=== PATIENT | male | born 1985 | race Caucasian/White ===

== ENCOUNTER 2022-06-21 19:05 | Inpatient (IN) | payer BC ==
[~2022-06-21 19:05] MED LIST: Iopamidol-370 76% 500 ML 1 ML ONE
[2022-06-21] MEDS ORDERED: Morphine 4 MG/ML VIAL ONE ×2 (19:41→21:43)
[2022-06-21] MEDS ORDERED: Pantoprazole 40 MG VIAL ONE (19:41)
[2022-06-21 20:14] LABS: #Eosinphils 0.1 thou/uL (0.0-0.7); #Lymphocytes 1.9 thou/uL (1.20-3.40); #Monocytes 1.1 thou/uL (0.11-0.59); #Neutrophils 13.4 thou/uL (1.40-6.50); %Basophils 0.3 % (0.0-1.0); %Eosinophils 0.5 % (0.0-10.0); %Lymphocytes 11.5 % (21.0-51.0); %Monocytes 6.4 % (0.0-10.0); %Neutrophils 81.3 % (42.0-75.0); Hemoglobin 15.5 g/dL (14.0-18.0); Mean Corpuscular HGB CONC 32.6 g/dL (32.0-36.0); Mean Corpuscular Hemoglobin 27.9 pg (27.0-31.0); Mean Corpuscular Volume 85.6 fL (78.0-98.0); Mean Platelet Volume 9.5 fL (7.4-10.4); Platelet Count 173 thou/uL (130-400); RBC Distribution Width 12.9 % (11.5-14.5); Red Blood Cell (RBC) Count 5.57 mill/uL (4.70-6.10); White Blood Cell (WBC) Count 16.4 thou/uL (4.8-10.8)
[2022-06-21 20:42] LABS: ALT (SGPT) 112 U/L (8-55); AST (SGOT) 151 U/L (5-34); Albumin 4.5 g/dL (3.5-5.0); Alkaline Phosphatase 170 U/L (40-110); Anion Gap 17 mmol/L (10-20); BUN (Urea Nitrogen) 16 mg/dL (8.9-20.6); Bilirubin, Total 0.6 mg/dL (0.2-1.2); CK (CPK) 255 U/L (30-200); Calc. Creatinine Clearance 0 mL/min (70-130); Calcium 9.4 mg/dL (7.8-10.44); Carbon Dioxide 25 mmol/L (22-29); Chloride 101 mmol/L (98-107); Estimated GFR 95; Globulin 2.9 g/dL (2.4-3.5); Glucose 113 mg/dL (70-105); Potassium 4.3 mmol/L (3.5-5.1); Protein, Total 7.4 g/dL (6.0-8.3); Sodium 139 mmol/L (136-145)
[2022-06-21 20:47] LABS: Lipase 4078 U/L (8-78)
[2022-06-21 21:33] LABS: Bilirubin Negative (Negative); Blood, Urine Negative (Negative); Clarity Clear (Clear); Glucose, Urine (Dipstick) Normal (Negative); Ketone, Urine Negative (Negative); Leukocyte Negative Leu/uL (Negative); Nitrite Negative (Negative); Protein, Urine (Dipstick) Negative (Neg-Trace); Urobilinogen Normal mg/dL (Less than 2); pH, Urine 5.5 (5.0-9.0)
[2022-06-21] MEDS ORDERED: Ondansetron ODT 4 MG TAB SL PRN (23:45)
[2022-06-21] MEDS ORDERED: Ondansetron PF 4 MG/2 ML Vial IVP PRN (23:45)
[2022-06-21] MEDS ORDERED: Acetaminophen 650 MG Suppository PR PRN (23:51)
[2022-06-21] MEDS ORDERED: Acetaminophen 325 MG TAB PO PRN (23:51)
[2022-06-21] MEDS ORDERED: Piperacillin/Tazobactam 3.375 GM in Sodium Chloride 0.9% 100 ML IVPB SCH (23:59)
[2022-06-22] MEDS: Sodium Chloride 0.9% 1,000 ML IV SCH ×3 (00:30→20:15)
[2022-06-22 02:21] VITALS: BMI 37.6
[2022-06-22] MEDS: Piperacillin/Tazobactam 3.375 GM in Sodium Chloride 0.9% 100 ML IVPB SCH ×3 (04:56→21:24)
[2022-06-22 06:32] LABS: #Eosinphils 0.2 thou/uL (0.0-0.7); #Lymphocytes 2.5 thou/uL (1.20-3.40); #Monocytes 0.7 thou/uL (0.11-0.59); %Basophils 0.4 % (0.0-1.0); %Eosinophils 1.7 % (0.0-10.0); %Lymphocytes 23.8 % (21.0-51.0); %Monocytes 6.4 % (0.0-10.0); %Neutrophils 67.6 % (42.0-75.0); Hemoglobin 14.4 g/dL (14.0-18.0); Mean Corpuscular Hemoglobin 27.7 pg (27.0-31.0); Mean Corpuscular Volume 86.5 fL (78.0-98.0); Mean Platelet Volume 9.5 fL (7.4-10.4); Platelet Count 155 thou/uL (130-400); RBC Distribution Width 12.9 % (11.5-14.5); White Blood Cell (WBC) Count 10.3 thou/uL (4.8-10.8)
[2022-06-22 07:03] LABS: Anion Gap 12 mmol/L (10-20); BUN (Urea Nitrogen) 12 mg/dL (8.9-20.6); Calc. Creatinine Clearance 195 mL/min (70-130); Calcium 8.5 mg/dL (7.8-10.44); Carbon Dioxide 26 mmol/L (22-29); Chloride 107 mmol/L (98-107); Estimated GFR 112; Glucose 99 mg/dL (70-105); Potassium 4.2 mmol/L (3.5-5.1); Sodium 141 mmol/L (136-145)
[2022-06-22 08:29] LABS: ALT (SGPT) 88 U/L (8-55); AST (SGOT) 69 U/L (5-34); Albumin 3.7 g/dL (3.5-5.0); Alkaline Phosphatase 147 U/L (40-110); Bilirubin, Direct 0.3 mg/dL (0.1-0.3); Bilirubin, Total 0.8 mg/dL (0.2-1.2)
[2022-06-22] MEDS ORDERED: Morphine 4 MG/ML VIAL SLOW IVP PRN (11:02)
[2022-06-22] MEDS ORDERED: Morphine 2 MG/ML VIAL SLOW IVP PRN (11:02)
[2022-06-23] MEDS: Sodium Chloride 0.9% 1,000 ML IV SCH ×3 (01:27→18:08)
[2022-06-23] MEDS: Piperacillin/Tazobactam 3.375 GM in Sodium Chloride 0.9% 100 ML IVPB SCH ×3 (05:14→21:13)
[2022-06-23 07:11] LABS: #Eosinphils 0.2 thou/uL (0.0-0.7); #Lymphocytes 2.2 thou/uL (1.20-3.40); #Monocytes 0.5 thou/uL (0.11-0.59); #Neutrophils 6.3 thou/uL (1.40-6.50); %Basophils 0.2 % (0.0-1.0); %Eosinophils 2.3 % (0.0-10.0); %Monocytes 5.5 % (0.0-10.0); %Neutrophils 67.9 % (42.0-75.0); Hemoglobin 14.3 g/dL (14.0-18.0); Mean Corpuscular Hemoglobin 28.5 pg (27.0-31.0); Mean Corpuscular Volume 86.2 fL (78.0-98.0); Mean Platelet Volume 9.4 fL (7.4-10.4); Platelet Count 155 thou/uL (130-400); RBC Distribution Width 12.8 % (11.5-14.5); Red Blood Cell (RBC) Count 5.03 mill/uL (4.70-6.10); White Blood Cell (WBC) Count 9.3 thou/uL (4.8-10.8)
[2022-06-23 07:34] LABS: ALT (SGPT) 59 U/L (8-55); AST (SGOT) 42 U/L (5-34); Albumin 3.9 g/dL (3.5-5.0); Alkaline Phosphatase 138 U/L (40-110); Anion Gap 14 mmol/L (10-20); BUN (Urea Nitrogen) 11 mg/dL (8.9-20.6); Bilirubin, Total 0.8 mg/dL (0.2-1.2); Calc. Creatinine Clearance 173 mL/min (70-130); Calcium 8.8 mg/dL (7.8-10.44); Carbon Dioxide 25 mmol/L (22-29); Chloride 103 mmol/L (98-107); Estimated GFR 99; Globulin 2.5 g/dL (2.4-3.5); Glucose 91 mg/dL (70-105); Protein, Total 6.4 g/dL (6.0-8.3); Sodium 138 mmol/L (136-145)
[2022-06-23] MEDS ORDERED: Piperacillin/Tazobactam 3.375 GM VIAL ONE (11:23)
[2022-06-23] MEDS ORDERED: Sodium Chloride 0.9% 100 ML ONE (11:24)
[2022-06-23] MEDS ORDERED: Bupivacaine/Epinephrine 0.25% 30 ML VIAL ONE (12:30)
[2022-06-23] MEDS ORDERED: Ketorolac Tromethamine 30 MG/ML VIAL ONE (12:45)
[2022-06-23] MEDS ORDERED: Rocuronium Bromide 10 MG/ML (10ML VIAL) ONE (12:45)
[2022-06-23] MEDS ORDERED: PROPOFOL 200 MG/20 ML VIAL ONE (12:45)
[2022-06-23] MEDS ORDERED: Lidocaine 1% PF 5 ML VIAL ONE (12:45)
[2022-06-23] MEDS ORDERED: Dexamethasone 20 MG/5 ML VIAL ONE (12:45)
[2022-06-23] MEDS ORDERED: Ondansetron PF 4 MG/2 ML Vial ONE (12:45)
[2022-06-23] MEDS ORDERED: Midazolam HCl 2 mg/2 ml Vial ONE (12:47)
[2022-06-23] MEDS ORDERED: fentaNYL Citrate/PF 100 MCG/2 ML SYRINGE ONE (12:48)
[2022-06-23] MEDS ORDERED: Promethazine HCl 25 MG/ML VIAL IM PRN ×3 (13:43→16:15)
[2022-06-23] MEDS ORDERED: Ondansetron HCl/PF 4 MG/2 ML Vial IVP PRN ×2 (13:43→16:15)
[2022-06-23] MEDS ORDERED: Morphine Sulfate 2 MG/ML SYRINGE SLOW IVP PRN (13:43)
[2022-06-23] MEDS ORDERED: Meperidine HCl/PF 25 MG/ML VIAL SLOW IVP PRN (13:43)
[2022-06-23] MEDS ORDERED: PACU-Morphine 4MG/ML VIAL SLOW IVP PRN (13:43)
[2022-06-23] MEDS ORDERED: HYDROmorphone 2 MG/ML VIAL SLOW IVP PRN (13:43)
[2022-06-23] MEDS ORDERED: Promethazine HCl 25 MG/ML VIAL IVPB PRN ×2 (13:43→16:15)
[2022-06-23] MEDS ORDERED: Iopamidol 30 ML ONE (14:00)
[2022-06-23] MEDS ORDERED: SUGAMMADEX SODIUM 200 MG/2 ML VIAL ONE (15:50)
[2022-06-23] MEDS ORDERED: HYDROmorphone 2 MG/ML VIAL ONE (15:55)
[2022-06-23] MEDS ORDERED: diphenhydrAMINE 25 MG CAP PO PRN (16:10)
[2022-06-23] MEDS ORDERED: diphenhydrAMINE 50 MG/ML VIAL IVP PRN (16:10)
[2022-06-23] MEDS ORDERED: Ondansetron PF 4 MG/2 ML Vial IVP PRN (16:10)
[2022-06-23] MEDS ORDERED: HYDROmorphone 10 mg/100 ml CADD IVPB PRN (16:10)
[2022-06-23] MEDS ORDERED: Naloxone HCl 0.4 mg/ml Vial IV PRN (16:10)
[2022-06-23] MEDS ORDERED: diphenhydrAMINE 50 MG/ML VIAL IM PRN (16:10)
[2022-06-23] MEDS ORDERED: Acetaminophen 325 MG TAB PO PRN (16:15)
[2022-06-23] MEDS ORDERED: Communication Order-Pharmacy FS SCH (16:15)
[2022-06-23] MEDS ORDERED: Fentanyl 100 MCG/2 ML VIAL ONE (16:54)
[2022-06-23] MEDS: Ketorolac Tromethamine 30 MG/ML VIAL IVP SCH (17:50)
[2022-06-24] MEDS: Ketorolac Tromethamine 30 MG/ML VIAL IVP SCH ×5 (01:03→22:43)
[2022-06-24] MEDS: Sodium Chloride 0.9% 1,000 ML IV SCH ×3 (04:29→17:34)
[2022-06-24] MEDS: Piperacillin/Tazobactam 3.375 GM in Sodium Chloride 0.9% 100 ML IVPB SCH ×3 (04:50→19:58)
[2022-06-24 06:48] LABS: Band 9 % (5-11); Lymphocytes 11 % (21-51); MDiff Complete? YES; Mean Corpuscular HGB CONC 32.5 g/dL (32.0-36.0); Mean Corpuscular Hemoglobin 28.2 pg (27.0-31.0); Mean Corpuscular Volume 86.8 fL (78.0-98.0); Mean Platelet Volume 9.2 fL (7.4-10.4); Monocytes 3 % (0-10); Neutrophil 77 % (42-75); Platelet Count 188 thou/uL (130-400); Platelet Morphology Comment Appears Adequate; RBC Distribution Width 12.9 % (11.5-14.5); RBC Morphology Normal; Red Blood Cell (RBC) Count 5.32 mill/uL (4.70-6.10); White Blood Cell (WBC) Count 19.6 thou/uL (4.8-10.8)
[2022-06-24] MEDS ORDERED: Famotidine/PF 20 mg/2ml Vial ONE (07:35)
[2022-06-24] MEDS ORDERED: SUGAMMADEX SODIUM 200 MG/2 ML VIAL ONE (07:35)
[2022-06-24] MEDS ORDERED: fentaNYL Citrate/PF 100 MCG/2 ML SYRINGE ONE (07:35)
[2022-06-24] MEDS ORDERED: Iopamidol 30 ML ONE (07:37)
[2022-06-24] MEDS ORDERED: B & O ONE (07:37)
[2022-06-24 07:46] LABS: Albumin 3.9 g/dL (3.5-5.0)
[2022-06-24 07:47] LABS: Chloride 104 mmol/L (98-107); Potassium 5.1 mmol/L (3.5-5.1); Sodium 138 mmol/L (136-145)
[2022-06-24 07:48] LABS: Calcium 8.8 mg/dL (7.8-10.44); Glucose 108 mg/dL (70-105)
[2022-06-24 07:49] LABS: Protein, Total 6.8 g/dL (6.0-8.3)
[2022-06-24 07:50] LABS: Anion Gap 15 mmol/L (10-20); Bilirubin, Total 0.7 mg/dL (0.2-1.2); Carbon Dioxide 24 mmol/L (22-29)
[2022-06-24 07:51] LABS: Alkaline Phosphatase 145 U/L (40-110)
[2022-06-24 07:52] LABS: Calc. Creatinine Clearance 177 mL/min (70-130); Estimated GFR 101
[2022-06-24 07:53] LABS: AST (SGOT) 49 U/L (5-34); BUN (Urea Nitrogen) 12 mg/dL (8.9-20.6); Bilirubin, Direct 0.2 mg/dL (0.1-0.3)
[2022-06-24 07:54] LABS: ALT (SGPT) 62 U/L (8-55)
[2022-06-24] MEDS ORDERED: Lidocaine 1% PF 5 ML VIAL ONE (08:19)
[2022-06-24] MEDS ORDERED: PROPOFOL 200 MG/20 ML VIAL ONE (08:19)
[2022-06-24] MEDS ORDERED: Rocuronium Bromide 10 MG/ML (10ML VIAL) ONE (08:19)
[2022-06-24] MEDS ORDERED: Phenylephrine 10 MG/ML VIAL ONE (08:19)
[2022-06-24] MEDS ORDERED: ePHEDrine 50 MG/ML VIAL ONE (08:19)
[2022-06-24] MEDS ORDERED: Metoclopramide HCl 10 MG/2 ML VIAL ONE (08:19)
[2022-06-24] MEDS ORDERED: Dexamethasone 20 MG/5 ML VIAL ONE (08:19)
[2022-06-24] MEDS ORDERED: Ondansetron PF 4 MG/2 ML Vial ONE (08:19)
[2022-06-24] MEDS ORDERED: Indomethacin 50 MG SUPP ONE (08:50)
[2022-06-24] MEDS ORDERED: Promethazine HCl 25 MG/ML VIAL IVPB PRN (10:19)
[2022-06-24] MEDS ORDERED: Ondansetron HCl/PF 4 MG/2 ML Vial IVP PRN (10:19)
[2022-06-24] MEDS ORDERED: Promethazine HCl 25 MG/ML VIAL IM PRN (10:19)
[2022-06-24] MEDS ORDERED: Senokot S 8.6-50 MG TAB PO PRN (18:49)
[2022-06-25] MEDS: Sodium Chloride 0.9% 1,000 ML IV SCH (05:31)
[2022-06-25] MEDS: Piperacillin/Tazobactam 3.375 GM in Sodium Chloride 0.9% 100 ML IVPB SCH (05:31)
[2022-06-25] MEDS: Ketorolac Tromethamine 30 MG/ML VIAL IVP SCH (05:31)
[2022-06-25 05:44] LABS: #Monocytes 1.3 thou/uL (0.11-0.59); #Neutrophils 14.9 thou/uL (1.40-6.50); %Basophils 0.1 % (0.0-1.0); %Eosinophils 0.1 % (0.0-10.0); %Lymphocytes 15.5 % (21.0-51.0); %Neutrophils 77.4 % (42.0-75.0); Hemoglobin 14.1 g/dL (14.0-18.0); Mean Corpuscular HGB CONC 32.5 g/dL (32.0-36.0); Mean Corpuscular Hemoglobin 28.3 pg (27.0-31.0); Mean Corpuscular Volume 87.2 fL (78.0-98.0); Mean Platelet Volume 9.2 fL (7.4-10.4); Platelet Count 196 thou/uL (130-400); RBC Distribution Width 13.1 % (11.5-14.5); Red Blood Cell (RBC) Count 4.98 mill/uL (4.70-6.10); White Blood Cell (WBC) Count 19.2 thou/uL (4.8-10.8)
[2022-06-25 06:05] LABS: ALT (SGPT) 48 U/L (8-55); AST (SGOT) 31 U/L (5-34); Albumin 4.1 g/dL (3.5-5.0); Alkaline Phosphatase 121 U/L (40-110); Anion Gap 15 mmol/L (10-20); BUN (Urea Nitrogen) 17 mg/dL (8.9-20.6); Bilirubin, Total 0.9 mg/dL (0.2-1.2); Calc. Creatinine Clearance 167 mL/min (70-130); Calcium 8.8 mg/dL (7.8-10.44); Carbon Dioxide 24 mmol/L (22-29); Chloride 104 mmol/L (98-107); Estimated GFR 94; Globulin 2.6 g/dL (2.4-3.5); Glucose 80 mg/dL (70-105); Potassium 4.4 mmol/L (3.5-5.1); Protein, Total 6.7 g/dL (6.0-8.3); Sodium 139 mmol/L (136-145)
[2022-06-25] MEDS ORDERED: traMADol HCl 50 MG TAB PO PRN ×2 (08:35→08:36)
[2022-06-25] MEDS ORDERED: Amoxicillin/Potassium Clav 875 MG TAB PO SCH (09:00)
[2022-06-25 11:38] VITALS: BP 129/73; TEMP 98
[2022-06-25] MEDS ORDERED: Acetaminophen 500 MG TAB PO SCH (12:00)
[2022-06-25] MEDS ORDERED: Ibuprofen 200 MG TAB PO SCH (14:00)
== END 2022-06-25 12:15 | disposition home or self-care (01) | DRG 414 ==
LOC: ERS 19:05 → T4-B 22:10
PROVIDERS: ADMIT Student in an Organized Health Care Education/Training Program; ATTEND Family Medicine
PROC: 0FT40ZZ Resection of Gallbladder, Open Approach (ICD-10-PCS; principal; 2022-06-23)
PROC: 0FJ44ZZ Inspection of Gallbladder, Percutaneous Endoscopic Approach (ICD-10-PCS; 2022-06-23)
PROC: 0FJB8ZZ Inspection of Hepatobiliary Duct, Via Natural or Artificial Opening Endoscopic (ICD-10-PCS; 2022-06-24)
DX: K81.0 Acute cholecystitis (principal); K85.90 Acute pancreatitis without necrosis or infection, unspecified; D80.3 Selective deficiency of immunoglobulin G [IgG] subclasses; N13.30 Unspecified hydronephrosis; Z20.822 Contact with and (suspected) exposure to COVID-19; K81.1 Chronic cholecystitis; K76.0 Fatty (change of) liver, not elsewhere classified; F17.220 Nicotine dependence, chewing tobacco, uncomplicated; E66.9 Obesity, unspecified; R59.1 Generalized enlarged lymph nodes; Z91.013 Allergy to seafood; Z79.899 Other long term (current) drug therapy; Z68.37 Body mass index [BMI] 37.0-37.9, adult
CPT/HCPCS: 36415; 74018; 74177; 74181; 76000; 76705; 78227; 80048; 80053; 80076; 81003; 82550; 83690; 85025; 88304; 93005; 96361; 96374; 96375; A9537; C1713; C9113; J1100; J1170; J1885; J2250; J2270; J2370; J2405; J2543; J2704; J2765; J3010; J3490; J7050; Q9967; S0028; U0003; U0005

== ENCOUNTER 2022-06-30 10:09 | Observation (INO) | payer BC ==
[2022-06-30] MEDS ORDERED: Ondansetron PF 4 MG/2 ML Vial ONE (10:58)
[2022-06-30] MEDS ORDERED: Piperacillin/Tazobactam 4.5 GM VIAL ONE (10:58)
[2022-06-30] MEDS ORDERED: Morphine 4 MG/ML VIAL ONE (10:58)
[2022-06-30 11:12] LABS: Hemoglobin 16.6 g/dL (14.0-18.0); Mean Corpuscular HGB CONC 33.4 g/dL (32.0-36.0); Mean Corpuscular Hemoglobin 28.7 pg (27.0-31.0); Mean Corpuscular Volume 85.9 fL (78.0-98.0); Mean Platelet Volume 8.8 fL (7.4-10.4); Platelet Count 251 thou/uL (130-400); RBC Distribution Width 12.7 % (11.5-14.5); Red Blood Cell (RBC) Count 5.79 mill/uL (4.70-6.10); White Blood Cell (WBC) Count 22.3 thou/uL (4.8-10.8)
[2022-06-30 11:16] LABS: INR-International Normal Ratio 0.9; Prothrombin Time 12.6 sec (12.0-14.7)
[2022-06-30 11:17] LABS: PTT 29.3 sec (22.9-36.1)
[2022-06-30 11:25] LABS: Bacteria/HPF None Seen HPF (None Seen); Bilirubin 1+ (Negative); Blood, Urine Negative (Negative); Clarity Hazy (Clear); Glucose, Urine (Dipstick) Normal (Negative); Ketone, Urine Negative (Negative); Leukocyte Negative Leu/uL (Negative); Nitrite Negative (Negative); Protein, Urine (Dipstick) 70 mg/dL (Neg-Trace); RBC/HPF 0-3 HPF (0-3); Specific Gravity, Urine 1.024 (1.002-1.036); Squamous Epithelial None Seen HPF (0-3); Urobilinogen Normal mg/dL (Less than 2); WBC/HPF 0-3 HPF (0-3)
[2022-06-30 11:28] LABS: ALT (SGPT) 194 U/L (8-55); AST (SGOT) 83 U/L (5-34); Albumin 4.5 g/dL (3.5-5.0); Alkaline Phosphatase 226 U/L (40-110); Anion Gap 17 mmol/L (10-20); BUN (Urea Nitrogen) 14 mg/dL (8.9-20.6); Bilirubin, Total 2.2 mg/dL (0.2-1.2); Calc. Creatinine Clearance 0 mL/min (70-130); Calcium 10.1 mg/dL (7.8-10.44); Carbon Dioxide 25 mmol/L (22-29); Estimated GFR 106; Globulin 3.4 g/dL (2.4-3.5); Glucose 107 mg/dL (70-105); Lipase 54 U/L (8-78); Potassium 4.8 mmol/L (3.5-5.1); Protein, Total 7.9 g/dL (6.0-8.3)
[2022-06-30 11:36] LABS: Band 3 % (5-11); Eosinophils 1 % (0-10); Lymphocytes 3 % (21-51); MDiff Complete? YES; Monocytes 7 % (0-10); Neutrophil 78 % (42-75); Platelet Morphology Comment Appears Adequate; RBC Morphology Normal; Reactive Lymphocytes 8 % (0-10)
[2022-06-30 11:37] LABS: Chloride 95 mmol/L (98-107); Sodium 132 mmol/L (136-145)
[2022-06-30] MEDS ORDERED: traMADol HCl 50 MG TAB PO PRN (15:06)
[2022-06-30] MEDS ORDERED: Ondansetron PF 4 MG/2 ML Vial IVP PRN (15:06)
[2022-06-30] MEDS ORDERED: Dextrose 5% in Water 1,000 ML IV PRN (15:06)
[2022-06-30] MEDS ORDERED: Morphine 4 MG/ML VIAL SLOW IVP PRN (15:06)
[2022-06-30] MEDS ORDERED: Dextrose 50% Abboject 50 ML SYRINGE SLOW IVP PRN (15:06)
[2022-06-30] MEDS ORDERED: Iopamidol-370 76% 500 ML 1 ML ONE (15:24)
[2022-06-30] MEDS ORDERED: Ketorolac Tromethamine 30 MG/ML VIAL ONE (15:26)
[2022-06-30 16:48] VITALS: BMI 34.8
[2022-06-30] MEDS: traMADol HCl 50 MG TAB PO SCH ×2 (17:05→21:52)
[2022-06-30] MEDS: Sodium Chloride 0.9% 1,000 ML IV SCH (17:15)
[2022-06-30] MEDS: Ketorolac Tromethamine 30 MG/ML VIAL IVP SCH (17:16)
[2022-06-30] MEDS ORDERED: Enoxaparin Sodium 40 MG/0.4 ML SYRINGE SC SCH (21:00)
[2022-06-30] MEDS: Piperacillin/Tazobactam 3.375 GM in Sodium Chloride 0.9% 100 ML IVPB SCH (21:53)
[2022-06-30] MEDS: Famotidine/PF 20 mg/2ml Vial SLOW IVP SCH (21:53)
[2022-07-01] MEDS: Ketorolac Tromethamine 30 MG/ML VIAL IVP SCH ×3 (00:50→12:10)
[2022-07-01] MEDS: Sodium Chloride 0.9% 1,000 ML IV SCH ×2 (01:03→08:37)
[2022-07-01] MEDS: traMADol HCl 50 MG TAB PO SCH ×2 (04:10→08:36)
[2022-07-01] MEDS: Piperacillin/Tazobactam 3.375 GM in Sodium Chloride 0.9% 100 ML IVPB SCH ×2 (04:10→12:10)
[2022-07-01 06:06] LABS: #Eosinphils 0.2 thou/uL (0.0-0.7); #Lymphocytes 2.7 thou/uL (1.20-3.40); #Monocytes 1.8 thou/uL (0.11-0.59); #Neutrophils 11.8 thou/uL (1.40-6.50); %Basophils 0.2 % (0.0-1.0); %Lymphocytes 16.5 % (21.0-51.0); %Monocytes 10.8 % (0.0-10.0); %Neutrophils 71.4 % (42.0-75.0); Hemoglobin 14.5 g/dL (14.0-18.0); Mean Corpuscular HGB CONC 33.7 g/dL (32.0-36.0); Mean Corpuscular Hemoglobin 29.2 pg (27.0-31.0); Mean Corpuscular Volume 86.8 fL (78.0-98.0); Platelet Count 211 thou/uL (130-400); RBC Distribution Width 12.6 % (11.5-14.5); Red Blood Cell (RBC) Count 4.96 mill/uL (4.70-6.10); White Blood Cell (WBC) Count 16.5 thou/uL (4.8-10.8)
[2022-07-01 06:26] LABS: Phosphorus 3.2 mg/dL (2.3-4.7)
[2022-07-01 06:28] LABS: ALT (SGPT) 182 U/L (8-55); AST (SGOT) 75 U/L (5-34); Albumin 3.8 g/dL (3.5-5.0); Alkaline Phosphatase 188 U/L (40-110); Anion Gap 17 mmol/L (10-20); BUN (Urea Nitrogen) 18 mg/dL (8.9-20.6); Bilirubin, Total 2.3 mg/dL (0.2-1.2); Calc. Creatinine Clearance 156 mL/min (70-130); Calcium 9.1 mg/dL (7.8-10.44); Carbon Dioxide 22 mmol/L (22-29); Chloride 101 mmol/L (98-107); Estimated GFR 95; Globulin 2.9 g/dL (2.4-3.5); Glucose 86 mg/dL (70-105); Magnesium 1.9 mg/dL (1.6-2.6); Potassium 4.5 mmol/L (3.5-5.1); Protein, Total 6.7 g/dL (6.0-8.3); Sodium 135 mmol/L (136-145)
[2022-07-01] MEDS: Famotidine/PF 20 mg/2ml Vial SLOW IVP SCH (08:37)
[2022-07-01 16:37] VITALS: BP 118/65; TEMP 98.9
[2022-07-02] MEDS ORDERED: Saccharomyces boulardii 250 MG CAP PO SCH (09:00)
== END 2022-07-01 16:15 | disposition home or self-care (01) ==
LOC: ERS 10:09 → SJJU 16:41
PROVIDERS: ADMIT Surgery; ATTEND Surgery
DX: K91.89 Other postprocedural complications and disorders of digestive system (principal); F17.220 Nicotine dependence, chewing tobacco, uncomplicated; D80.1 Nonfamilial hypogammaglobulinemia; R63.0 Anorexia; Z68.34 Body mass index [BMI] 34.0-34.9, adult; Z79.2 Long term (current) use of antibiotics; Z79.899 Other long term (current) drug therapy; Z91.013 Allergy to seafood; Z90.2 Acquired absence of lung [part of]
CPT/HCPCS: 36415; 74177; 80053; 81001; 82247; 83605; 83690; 83735; 84100; 85025; 85379; 85610; 85730; 87040; 87086; 93005; 93970; 94640; 96365; 96366; 96372; 96375; 96376; G0378; J1650; J1885; J2270; J2405; J2543; J3490; J7050; J7620; Q9967; S0028

== ENCOUNTER 2022-07-07 22:01 | Inpatient (IN) | payer BC ==
[2022-07-07 23:14] LABS: #Basophils 0.1 thou/uL (0.0-0.2); #Eosinphils 0.2 thou/uL (0.0-0.7); #Lymphocytes 4.2 thou/uL (1.20-3.40); #Monocytes 0.6 thou/uL (0.11-0.59); #Neutrophils 7.8 thou/uL (1.40-6.50); %Basophils 0.6 % (0.0-1.0); %Eosinophils 1.8 % (0.0-10.0); %Lymphocytes 32.4 % (21.0-51.0); %Monocytes 4.4 % (0.0-10.0); %Neutrophils 60.9 % (42.0-75.0); Hemoglobin 14.4 g/dL (14.0-18.0); Mean Corpuscular HGB CONC 34.5 g/dL (32.0-36.0); Mean Corpuscular Hemoglobin 30.1 pg (27.0-31.0); Mean Corpuscular Volume 87.4 fL (78.0-98.0); Mean Platelet Volume 8.3 fL (7.4-10.4); Platelet Count 277 thou/uL (130-400); RBC Distribution Width 12.4 % (11.5-14.5); Red Blood Cell (RBC) Count 4.79 mill/uL (4.70-6.10); White Blood Cell (WBC) Count 12.9 thou/uL (4.8-10.8)
[2022-07-07 23:41] LABS: ALT (SGPT) 126 U/L (8-55); AST (SGOT) 41 U/L (5-34); Albumin 4.2 g/dL (3.5-5.0); Alkaline Phosphatase 204 U/L (40-110); Anion Gap 17 mmol/L (10-20); BUN (Urea Nitrogen) 13 mg/dL (8.9-20.6); Bilirubin, Total 0.5 mg/dL (0.2-1.2); Calc. Creatinine Clearance 0 mL/min (70-130); Calcium 9.7 mg/dL (7.8-10.44); Carbon Dioxide 26 mmol/L (22-29); Chloride 102 mmol/L (98-107); Estimated GFR 112; Glucose 101 mg/dL (70-105); Lipase 59 U/L (8-78); Potassium 3.7 mmol/L (3.5-5.1); Protein, Total 7.2 g/dL (6.0-8.3); Sodium 141 mmol/L (136-145)
[2022-07-07] MEDS ORDERED: VANCOMYCIN 2 GRAM/500 ML BAG 2 GM in Premix Bag 1 BAG IVPB SCH (23:45)
[2022-07-07] MEDS ORDERED: Piperacillin/Tazobactam 4.5 GM VIAL ONE (23:51)
[2022-07-08] MEDS ORDERED: Morphine 4 MG/ML VIAL SLOW IVP PRN (01:29)
[2022-07-08] MEDS ORDERED: Ondansetron ODT 4 MG TAB SL PRN (01:30)
[2022-07-08] MEDS ORDERED: Acetaminophen 325 MG TAB PO PRN (01:30)
[2022-07-08] MEDS ORDERED: Sodium Chloride 0.9% 1,000 ML IV SCH (01:30)
[2022-07-08] MEDS ORDERED: Ondansetron PF 4 MG/2 ML Vial IVP PRN (01:30)
[2022-07-08] MEDS ORDERED: Piperacillin/Tazobactam 3.375 GM in Sodium Chloride 0.9% 100 ML IVPB SCH (04:00)
[2022-07-08 04:13] VITALS: BMI 33.2
[2022-07-08 07:22] LABS: SARS-CoV-2 NAA Rapid Test Not Detected (NotDetected)
[2022-07-08 08:14] VITALS: BP 117/73; TEMP 97.5
[2022-07-08] MEDS ORDERED: Polyethylene Glycol 3350 17 GM Packet PO SCH (09:00)
== END 2022-07-08 11:46 | disposition home or self-care (01) | DRG 863 ==
LOC: ERS 22:01 → SJJU 07-08 00:21
PROVIDERS: ADMIT Surgery; ATTEND Surgery
DX: T81.43XA Infection following a procedure, organ and space surgical site, initial encounter (principal); D84.9 Immunodeficiency, unspecified; Z20.822 Contact with and (suspected) exposure to COVID-19; F17.210 Nicotine dependence, cigarettes, uncomplicated; Y83.8 Other surgical procedures as the cause of abnormal reaction of the patient, or of later complication, without mention of misadventure at the time of the procedure; D64.9 Anemia, unspecified; K59.00 Constipation, unspecified; Z98.890 Other specified postprocedural states; Z90.49 Acquired absence of other specified parts of digestive tract; Z91.013 Allergy to seafood
CPT/HCPCS: 74177; 80053; 83605; 83690; 85025; J2270; J2543; J3370; J3490; J7050; U0002

== ENCOUNTER 2022-10-16 04:09 | Emergency (ER) | payer BC ==
[2022-10-16] MEDS ORDERED: Morphine 4 MG/ML VIAL ONE (04:28)
[2022-10-16] MEDS ORDERED: Ondansetron PF 4 MG/2 ML Vial ONE (04:28)
[2022-10-16 05:07] LABS: #Eosinphils 0.1 thou/uL (0.0-0.7); #Lymphocytes 1.5 thou/uL (1.20-3.40); #Monocytes 0.9 thou/uL (0.11-0.59); #Neutrophils 12.2 thou/uL (1.40-6.50); %Basophils 0.3 % (0.0-1.0); %Eosinophils 0.5 % (0.0-10.0); %Lymphocytes 10.1 % (21.0-51.0); %Neutrophils 83.1 % (42.0-75.0); Hemoglobin 15.5 g/dL (14.0-18.0); Mean Corpuscular HGB CONC 32.4 g/dL (32.0-36.0); Mean Corpuscular Hemoglobin 27.4 pg (27.0-31.0); Mean Corpuscular Volume 84.7 fl (78.0-98.0); Mean Platelet Volume 9.2 fL (7.4-10.4); Platelet Count 156 10x3/uL (130-400); RBC Distribution Width 12.8 % (11.5-14.5); Red Blood Cell (RBC) Count 5.65 mill/uL (4.70-6.10); White Blood Cell (WBC) Count 14.7 10x3/uL (4.8-10.8)
[2022-10-16 05:25] LABS: ALT (SGPT) 52 U/L (8-55); AST (SGOT) 41 U/L (5-34); Albumin 4.5 g/dL (3.5-5.0); Alkaline Phosphatase 130 U/L (40-110); Anion Gap 16 mmol/L (10-20); BUN (Urea Nitrogen) 15 mg/dL (8.9-20.6); Bilirubin, Total 0.4 mg/dL (0.2-1.2); Calc. Creatinine Clearance 0 mL/min (70-130); Calcium 9.5 mg/dL (7.8-10.44); Carbon Dioxide 22 mmol/L (22-29); Chloride 103 mmol/L (98-107); Estimated GFR 76; Globulin 2.8 g/dL (2.4-3.5); Glucose 165 mg/dL (70-105); Lipase 38 U/L (8-78); Potassium 4.6 mmol/L (3.5-5.1); Protein, Total 7.3 g/dL (6.0-8.3); Sodium 136 mmol/L (136-145)
[2022-10-16] MEDS ORDERED: Ketorolac Tromethamine 30 MG/ML VIAL ONE (06:21)
== END 2022-10-16 06:29 | disposition home or self-care (01) ==
LOC: ERS 04:09
DX: N13.2 Hydronephrosis with renal and ureteral calculous obstruction (principal); N23 Unspecified renal colic; F17.220 Nicotine dependence, chewing tobacco, uncomplicated
CPT/HCPCS: 74176; 80053; 83690; 85025; 96374; 96375; J1885; J2270; J2405